=== PATIENT | male | born 1975 | race Caucasian/White ===

== ENCOUNTER 2016-07-19 13:38 | Emergency (ER) | payer MEDICAID ==
[2016-07-19 13:51] VITALS: BP 127/91
[2016-07-19] MEDS ORDERED: Sodium Chloride 0.9% 1,000 ML IV ONE (14:12)
[2016-07-19] MEDS ORDERED: Morphine Sulfate 4 mg/mL 1mL Syr IVP ONE (14:13)
--- NOTE | 2016-07-19 14:19 | ED Physician Chart ---
Chief Complaint/HPI - Patient Information Date Seen:: 07/19/16 Time Seen:: 14:04 Chief Complaint:: HEADACHE X 1 WEEK, WORSE X 2 DAYS History of Present Illness:: This 40-year-old male presents with a history of chronic headaches that began when he was approximately 21 years old. He has the headaches anywhere from once a week to on a monthly basis in the past years. At home he manages the headaches with tramadol but he knows the tramadol does not work once the headaches are established. The last time he had an identical headache to the present one was 3 months ago. The headaches are accompanied by nausea with occasional episodes of emesis. He describes the pain as a 9/10 in severity and he characterizes the pain as a pressure. The patient headaches can occur on either side of his head but today he has headache in both temporal regions. He has experienced in the bilateral headaches in the past. Light and noises make the headaches worse. The patient has been evaluated with CT scans of the head in the past with no significant findings. His mother has a history of migraine headaches as well. No family history of IC bleedS. Allergies:: Allergies Allergy/AdvReac Type Severity Reaction Status Date / Time No Known Allergies Allergy Verified 07/19/16 13:47 Vitals:: Vital Signs - 8 hr 07/19/16 07/19/16 13:50 13:51 Temp 98.5 F HR 79 RR 17 BP 127/91 127/91 O2 Sat % 97 Review of Systems - Review of Systems General/Constitutional: No fever, No chills, No weight loss, No weakness Skin: No skin lesions, No rash Head: Headache, No light-headedness Eyes: No loss of vision, No diplopia ENT: No earache, No sore throat, No tinnitus Neck: Neck pain, No swelling, No stiffness, No mass noted Cardio Vascular: No chest pain, No palpitations, No edema Pulmonary: No SOB, No cough, No sputum GI: Nausea, Vomiting, No diarrhea, No hematemesis G/U: No dysuria, No frequency, No hematuria Musculoskeletal: Bone or joint pain, No back pain Endocrine: No polyuria, No polydipsia Psychiatric: No prior psych history, No anxiety, No suicidal ideation Hematopoietic: No bruising Allergic/Immuno: No urticaria Neurological: No syncope, No focal symptoms, No weakness, No paresthesia, Headache, No confusion, No vertigo Past Medical History - Past Medical History Past Medical History: No significant medical hx, Other (history of migraine headaches.) Social History: Smoker (1-2 cigarettes per day.), No Alcohol, No Drug Use Surgical History: Hernia Family Medical History - Family Member Mother History Unknown: Yes Ethnicity: Living Status: Hx Family Cancer: No Hx Family Coronary Artery Disease: No Hx Family Congestive Heart Failure: No Hx Family Hypertension: Yes Hx Family Stroke: No Hx Family Diabetes: Yes Hx Family Seizures: No Hx Family Dementia: No Hx Family AIDS: No Hx Family HIV: No Hx Family COPD: No Hx Family Hepatitis: No Hx Family Psychiatric Problems: No Hx Family Tuberculosis: No Physical Exam - Physical Examination General/Constitutional: Awake, Well-developed, well-nourished, Alert, GCS 15, Non-toxic appearing, Ambulatory Head: Atraumatic Eyes: Lids, conjuctiva normal, PERRL, EOMI Skin: Nl inspection, No rash, No skin lesions, No ecchymosis, Well hydrated ENMT: External ears, nose nl, Nasal exam nl, Lips, teeth, gums nl, Oropharynx nl , Tonsils nl Neck: Nontender, No JVD, No nuchal rigidity Other Neck comments:: Supple with AP flexion. No C-spine tenderness. Respiratory: Nl effort/Exclusion, Clear to Auscultation, No Wheeze/Rhonchi/Rales Cardio Vascular: No murmur, gallop, rubs, NL S1 S2 Other Cardio Vascular comments:: Good pulses in all 4 extremities. GI: No tenderness/rebounding/guarding, No organomegaly, Normal BS's, Nondistended, No mass/bruits, No McBurney tenderness Other GI comments:: Patient has a laparoscopy scar below the umbilicus. Bowel sounds are normal. The abdomen is soft and nontender to palpation. No rebound or guarding. : No CVA tenderness Extremities: No tenderness or effusion, Full ROM, normal strength in all extremities, No edema Neuro/Psych: Alert/oriented, DTR's symmetric, Normal sensory exam, Normal motor strength, Judgement/insight normal, Mood normal, Normal gait, No focal deficits Other Neuro/Psych comments:: Finger-nose testing and heel-martinez testing are normal. The patient's gait is normal. Negative Romberg test. Labs/Radiology/EKG Results - Lab Results Results: No diagnostic laboratory studies or radiographic studies were indicated. Assessment - Assessment General Assessment: CASE SUMMARY: This 21-year-old male with a history of chronic migraine headaches presents with a typical headache that started seven days ago. His neurologic examination was nonfocal. Patient was treated with IV Zofran and morphine for control of his nausea, vomiting and headache. HE madrigal a good response and was discharged home. He was advised to follow up with his primary care physician within the next week or two. He was further advised to return to the emergency department for any onset of new neurologic symptoms. MDM DDX for ACUTE HEADACHE: NOT SAH Based on the patient's history and examination. NOT Meningitis based on the patient's history and examination. NOT Acute head injury based on the patient's history and physical examination. NOT Vertebral artery dissection based on the patient's history and physical examination. ED Septic Shock - . Is Septic Shock (SBP<90, OR Lactate>4 mmol\L) present?: No - <6hrs of presentation: Vital Signs: Vital Signs - 8 hr 07/19/16 07/19/16 13:50 13:51 Temp 98.5 F HR 79 RR 17 BP 127/91 127/91 O2 Sat % 97 Reassessment (Disposition) - Reassessment Reassessment Condition:: Improved - Diagnosis Diagnosis:: MIGRAINE HEADACHE - Aftercare/Follow up Instructions Aftercare/Follow-Up Instructions:: Refer to Discharge Instructions, Counseled pt & family regarding lab results/diagnosis & need follow up - Patient Disposition Discharge/Transfer:: Home ED Discharge Plan - Patient Disposition Admit/Discharge/Transfer: PT DISCHARGED HOME Condition at Disposition: Stable Instructions: Migraine Headache, [id number] Additional Instructions: Follow up with PMD this week. Accepting Physician: Primitivo Dee [Other]
[2016-07-19] MEDS ORDERED: Morphine Sulfate 4 mg/mL 1mL Syr ONE (14:20)
== END 2016-07-19 15:30 | disposition home or self-care (01) ==
LOC: ER 13:38
DX: G43.909 Migraine, unspecified, not intractable, without status migrainosus (principal); F17.210 Nicotine dependence, cigarettes, uncomplicated
CPT/HCPCS: 99284; 96374; 96375; J2405; J7030; Z7502

== ENCOUNTER 2016-10-12 17:14 | Emergency (ER) | payer MEDICAID ==
--- NOTE | 2016-10-12 17:35 | ED Physician Chart ---
Chief Complaint/HPI - Patient Information Date Seen:: 10/12/16 Time Seen:: 17:25 Chief Complaint:: L knee pain for 4 days. History of Present Illness:: Pt is Swedish speaking. Interpretation is provided by his son Pierre per pt's request. Pt denies any injury or trauma prior to onset of his L knee pain. Pt has not taken any analgesic over past few days. Pt remains ambulatory, though L knee pain worsens with prolonged wt bearing activities. No fever. No weakness or numbness. Allergies:: Allergies Allergy/AdvReac Type Severity Reaction Status Date / Time No Known Allergies Allergy Verified 10/12/16 17:21 Vitals:: see Nurse Note. Historian:: Patient Family MD/PCP:: Nick Kingsley LMP:: N/A Review:: Nurse's Note Reviewed Review of Systems - Review of Systems General/Constitutional: No fever, No chills, No weight loss, No weakness, No diaphoresis, No edema, No loss of appetite Skin: No skin lesions, No rash, No bruising Head: No headache, No light-headedness Eyes: No loss of vision, No pain, No diplopia ENT: No earache, No nasal drainage, No sore throat, No tinnitus Neck: No neck pain, No swelling, No thyromegaly, No stiffness, No mass noted Cardio Vascular: No chest pain, No palpitations, No PND, No orthopnea, No edema Pulmonary: No SOB, No cough, No sputum, No wheezing GI: No nausea, No vomiting, No diarrhea, No pain G/U: No dysuria, No frequency, No hematuria Musculoskeletal: No bone or joint pain (L knee pain, see HPI.), No back pain, No muscle pain Endocrine: No polyuria, No polydipsia Psychiatric: No prior psych history Hematopoietic: No bruising, No lymphadenopathy Allergic/Immuno: No urticaria, No angioedema Neurological: No syncope, No focal symptoms, No weakness, No paresthesia, No headache, No confusion Past Medical History - Past Medical History Past Medical History: No significant medical hx Family History: Diabetes Melitus (mother) Social History: Non Smoker, No Alcohol, No Drug Use, Other (lives with his and children.) Employment:: unemployed. Surgical History: Hernia (L inguinal hernia repair '09) Psychiatricy History: None Medication: Reviewed Family Medical History - Family Member Mother History Unknown: Yes Ethnicity: Living Status: Hx Family Cancer: No Hx Family Coronary Artery Disease: No Hx Family Congestive Heart Failure: No Hx Family Hypertension: Yes Hx Family Stroke: No Hx Family Diabetes: Yes Hx Family Seizures: No Hx Family Dementia: No Hx Family AIDS: No Hx Family HIV: No Hx Family COPD: No Hx Family Hepatitis: No Hx Family Psychiatric Problems: No Hx Family Tuberculosis: No Physical Exam - Physical Examination General/Constitutional: Awake, Well-developed, well-nourished, Alert, No distress, GCS 15, Non-toxic appearing, Ambulatory Other Gen/Cons comments:: Breathes comfortably, speaks clearly, and ambulates without definite difficulty. Head: Atraumatic Eyes: Lids, conjuctiva normal, PERRL, EOMI Skin: Nl inspection, No rash, No skin lesions, No ecchymosis, Well hydrated, No lymphadenopathy ENMT: External ears, nose nl, Nasal exam nl, Lips, teeth, gums nl, Oropharynx nl Neck: Nontender, Full ROM w/o pain, No nuchal rigidity, No mass, No stridor Respiratory: Nl effort/Exclusion, Clear to Auscultation, No Wheeze/Rhonchi/Rales Cardio Vascular: RRR, No murmur, gallop, rubs GI: No tenderness/rebounding/guarding, No organomegaly, Normal BS's, Nondistended, No mass/bruits Other GI comments:: Abdomen is obese but soft. : No CVA tenderness Other Extremities comments:: LLE: L knee: tenderness to palpation at anterior superior and lateral aspects. No gross deformity, erythema, crepitus, swelling, or unusual warmth. Good ROM. Negative Drawer's sign, stable MCL and LCL. No detectable motor/sensory/ vascular deficit. Good distal pulse. Neuro/Psych: Alert/oriented (oriented x 3), No focal deficits ED Septic Shock - . Is Septic Shock (SBP<90, OR Lactate>4 mmol\L) present?: No Reassessment (Disposition) - Reassessment Reassessment:: 182 Pt feels much better. L knee X-ray was offered earlier but he declined. Pt states that he had prolonged walking prior to onset of his L knee pain. Pt requests to go home now and does not want further observation/management in hospital. Aftercare instructions have been given. Interpretation is provided by his son Pierre. 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 Stable and improved. - Aftercare/Follow up Instructions Aftercare/Follow-Up Instructions:: Refer to Discharge Instructions Notes:: Avoid excessive wt bearing activities or heavy lifting until further physician direction. May take Tylenol 500 mg tab one tab po q6h prn pain. F/U with PCP at [facility] in 2-3 days for recheck. Return to ER immediately if condition worsens or if any further questions/problems. Medication Prescribed:: None - Patient Disposition Discharge/Transfer:: Home Time:: 18:30 Condition at Disposition:: Stable, Improved
== END 2016-10-12 18:24 | disposition home or self-care (01) ==
LOC: ER 17:14
DX: M17.12 Unilateral primary osteoarthritis, left knee (principal)
CPT/HCPCS: 99283; 96372; J1885; 96374; Z7502

== ENCOUNTER 2017-12-05 03:23 | Emergency (ER) | payer MEDICAID ==
--- NOTE | 2017-12-05 04:46 | ED Physician Chart ---
ED Chief Complaint/HPI - Patient Information Date Seen:: 12/05/17 Time Seen:: 03:45 Chief Complaint:: coffee ground emesis Allergies:: Allergies Allergy/AdvReac Type Severity Reaction Status Date / Time No Known Allergies Allergy Verified 10/12/16 17:21 Vitals:: Vital Signs - 8 hr 12/05/17 03:38 Temp 97.5 F HR 73 RR 16 BP 142/79 O2 Sat % 97 ED Past Medical History - Past Medical History Obtainable: Yes Past Medical History: Other (migraine headache) Family Medical History - Family Member Mother History Unknown: Yes Ethnicity: Living Status: Hx Family Cancer: No Hx Family Coronary Artery Disease: No Hx Family Congestive Heart Failure: No Hx Family Hypertension: No Hx Family Stroke: No Hx Family Diabetes: No Hx Family Seizures: No Hx Family Dementia: No Hx Family AIDS: No Hx Family HIV: No Hx Family COPD: No Hx Family Hepatitis: No Hx Family Psychiatric Problems: No Hx Family Tuberculosis: No ED Physical Exam - Physical Examination General/Constitutional: Awake, Well-developed, well-nourished, Alert, No distress, GCS 15, Non-toxic appearing, Ambulatory Head: Atraumatic Eyes: Lids, conjuctiva normal, PERRL, EOMI Skin: Nl inspection, No rash, No skin lesions, No ecchymosis, Well hydrated, No lymphadenopathy ENMT: External ears, nose nl, Nasal exam nl, Lips, teeth, gums nl Neck: Nontender, Full ROM w/o pain, No JVD, No nuchal rigidity, No bruit, No mass, No stridor Respiratory: Nl effort/Exclusion, Clear to Auscultation, No Wheeze/Rhonchi/Rales Cardio Vascular: RRR, No murmur, gallop, rubs, NL S1 S2 : No CVA tenderness Extremities: No tenderness or effusion, Full ROM, normal strength in all extremities, No edema, Normal digits & nails Neuro/Psych: Alert/oriented, DTR's symmetric, Normal sensory exam, Normal motor strength, Judgement/insight normal, Mood normal, Normal gait, No focal deficits Misc: Normal back, No paraspinal tenderness ED Assessment - Assessment Assessment/Comments:: patient feels 100% better after treatment. He is sleeping comfortably. Repeat BP was 119/73 after his headache went away. ED Septic Shock - . Is Septic Shock (SBP<90, OR Lactate>4 mmol\L) present?: No - <6hrs of presentation: Vital Signs: Vital Signs - 8 hr 12/05/17 03:38 Temp 97.5 F HR 73 RR 16 BP 142/79 O2 Sat % 97 ED Reassessment (Disposition) - Reassessment Reassessment Condition:: Improved - Diagnosis Diagnosis:: Migraine headache - Patient Disposition Discharge/Transfer:: Home
== END 2017-12-05 04:45 | disposition home or self-care (01) ==
LOC: ER 03:23
DX: G43.909 Migraine, unspecified, not intractable, without status migrainosus (principal); K92.0 Hematemesis
CPT/HCPCS: 99284; 96374; 96375; J1885; J1200; Z7502

== ENCOUNTER 2018-08-21 05:52 | Emergency (ER) | payer MEDICAID ==
--- NOTE | 2018-08-21 06:45 | ED Physician Chart ---
ED Chief Complaint/HPI - Patient Information Date Seen:: 08/21/18 Time Seen:: 06:42 Chief Complaint:: lt sided headache for one wk History of Present Illness:: 42 yr old male with lt sided headache for one wk no dizziness no htn or dm no nv no numbness or weakness Allergies:: Allergies Allergy/AdvReac Type Severity Reaction Status Date / Time No Known Allergies Allergy Verified 10/12/16 17:21 Vitals:: Vital Signs - 8 hr 08/21/18 08/21/18 06:05 06:30 Temp 97.8 F 97.8 F HR 63 61 RR 19 15 BP 124/82 126/87 O2 Sat % 96 96 ED Review of Systems - Review of Systems General/Constitutional: No fever, No chills, No weight loss, No weakness, No diaphoresis, No edema, No loss of appetite Skin: No skin lesions, No rash, No bruising Head: Headache Eyes: No loss of vision, No pain, No diplopia ENT: No earache, No nasal drainage, No sore throat, No tinnitus Neck: No neck pain, No swelling, No thyromegaly, No stiffness, No mass noted Cardio Vascular: No chest pain, No palpitations, No PND, No orthopnea, No edema Pulmonary: No SOB, No cough, No sputum, No wheezing GI: No nausea, No vomiting, No diarrhea, No pain, No melena, No hematochezia, No constipation, No hematemesis G/U: No dysuria, No frequency, No hematuria Musculoskeletal: No bone or joint pain, No back pain, No muscle pain Endocrine: No polyuria, No polydipsia Psychiatric: No prior psych history, No depression, No anxiety, No suicidal ideation Hematopoietic: No bruising, No lymphadenopathy Allergic/Immuno: No urticaria, No angioedema Neurological: No syncope, No focal symptoms, No weakness, No paresthesia, No headache, No seizure, No dizziness, No confusion, No vertigo ED Past Medical History - Past Medical History Past Medical History: No significant medical hx Family Medical History - Family Member Mother History Unknown: Yes Ethnicity: Living Status: Hx Family Cancer: No Hx Family Coronary Artery Disease: No Hx Family Congestive Heart Failure: No Hx Family Hypertension: No Hx Family Stroke: No Hx Family Diabetes: No Hx Family Seizures: No Hx Family Dementia: No Hx Family AIDS: No Hx Family HIV: No Hx Family COPD: No Hx Family Hepatitis: No Hx Family Psychiatric Problems: No Hx Family Tuberculosis: No ED Physical Exam - Physical Examination General/Constitutional: Awake, Well-developed, well-nourished, Alert, No distress, GCS 15, Non-toxic appearing, Ambulatory Head: Atraumatic Eyes: Lids, conjuctiva normal, PERRL, EOMI Skin: Nl inspection, No rash, No skin lesions, No ecchymosis, Well hydrated, No lymphadenopathy ENMT: External ears, nose nl, Nasal exam nl, Lips, teeth, gums nl Neck: Nontender, Full ROM w/o pain, No JVD, No nuchal rigidity, No bruit, No mass, No stridor Respiratory: Nl effort/Exclusion, Clear to Auscultation, No Wheeze/Rhonchi/Rales Cardio Vascular: RRR, No murmur, gallop, rubs, NL S1 S2 GI: No tenderness/rebounding/guarding, No organomegaly, No hernia, Normal BS's, Nondistended, No mass/bruits, No McBurney tenderness : No CVA tenderness Extremities: No tenderness or effusion, Full ROM, normal strength in all extremities, No edema, Normal digits & nails Neuro/Psych: Alert/oriented, DTR's symmetric, Normal sensory exam, Normal motor strength, Judgement/insight normal, Mood normal, Normal gait, No focal deficits Misc: Normal back, No paraspinal tenderness ED Assessment - Assessment General Assessment: headache ED Septic Shock - . Is Septic Shock (SBP<90, OR Lactate>4 mmol\L) present?: No - <6hrs of presentation: Vital Signs: Vital Signs - 8 hr 08/21/18 08/21/18 06:05 06:30 Temp 97.8 F 97.8 F HR 63 61 RR 19 15 BP 124/82 126/87 O2 Sat % 96 96 ED Reassessment (Disposition) - Reassessment Reassessment:: headaches - Diagnosis Diagnosis:: as above - Patient Disposition Discharge/Transfer:: Home Condition at Disposition:: Stable
[2018-08-21 07:07] LABS: URINE SOURCE CLEAN C
[2018-08-21 07:16] LABS: URINE BILIRUBIN NEGATIVE (NEGATIVE); URINE BLOOD NEGATIVE (NEGATIVE); URINE GLUCOSE (UA) NEGATIVE (NEGATIVE); URINE KETONE NEGATIVE (NEGATIVE); URINE LEUKOCYTE ESTERASE NEGATIVE (NEGATIVE); URINE NITRATE NEGATIVE (NEGATIVE); URINE PH 5.5 (4.6 - 8.0); URINE PROTEIN NEGATIVE (NEGATIVE); URINE UROBILINOGEN 0.2 E.U./dL (0.2 - 1.0)
[2018-08-21 07:22] LABS: URINE CLARITY CLEAR (CLEAR); URINE COLOR YELLOW; URINE MICROSCOPIC INDICATED? NO
[2018-08-21 07:28] LABS: AMPHETAMINE URINE NEGATIVE (NEGATIVE); BARBITURATES URINE NEGATIVE (NEGATIVE); BENZODIAZEPINES QUAL URINE NEGATIVE (NEGATIVE); CANNABINOID THC NEGATIVE (NEGATIVE); COCAINE METABOLITE QUAL URINE NEGATIVE (NEGATIVE); METHADONE URINE NEGATIVE (NEGATIVE); METHAMPHETAMINES QUAL URINE NEGATIVE (NEGATIVE); OPIATES (MORPHINE) QUAL. URINE NEGATIVE (NEGATIVE); PHENCYCLIDINE (PCP) URINE NEGATIVE (NEGATIVE); TRICYCLICS (TCA) QUAL. URINE NEGATIVE (NEGATIVE)
[2018-08-21 07:29] LABS: % BASOPHILS 0.2 % (0.0-2.0); % EOSINOPHILS 1.1 % (0.0-5.0); % LYMPHOCYTES 9.3 % (20.0-50.0); % MONOCYTES 5.6 % (2.0-10.0); % NEUTROPHILS 83.8 % (40.0-80.0); EOSINOPHILE ABSOLUTE 0.1 Th/cmm (0.1-0.4); HEMATOCRIT 44.6 % (41.0-60); LYMPHOCYTE ABSOLUTE 0.9 Th/cmm (1.5-3.0); MEAN CELL VOLUME 88.9 fl (80-99); MEAN CORPUSCULAR HEMOGLOBIN 29.8 pg (26.0-30.0); MEAN CORPUSCULAR HGB CONC 33.5 pg (28.0-36.0); MEAN PLATELET VOLUME 6.8 fl; MONOCYTE ABSOLUTE 0.5 Th/cmm (0.3-1.0); NEUTROPHILE ABSOLUTE 7.7 Th/cmm (1.8-8.0); PLATELET COUNT 254 Th/cmm (150-400); RED BLOOD COUNT 5.02 Mil/cmm (4.30-5.70); RED CELL DISTRIBUTION WIDTH 12.8 % (11.5-20.0); WHITE BLOOD COUNT 9.2 Th/cmm (4.8-10.8)
[2018-08-21 07:47] LABS: ALB/GLOB RATIO 1.6 (1.0-1.8); ALBUMIN 4.5 gm/dL (4.2-5.5); ALKALINE PHOSPHATASE 69 U/L (34-104); ANION GAP 12.2 (7.0-16.0); BILIRUBIN,TOTAL 0.8 mg/dL (0.3-1.0); BUN - UREA NITROGEN 15 mg/dL (7-25); CALCIUM SERUM 9.5 mg/dL (8.6-10.3); CARBON DIOXIDE 25.4 mEq/L (21.0-31.0); CHLORIDE 107 mEq/L (98-107); GFR AFRICAN-AMERICAN > 60.0 ml/min (>90); GFR NON AFRICAN-AMERICAN > 60.0 ml/min; GLUCOSE 108 mg/dL (70-105); POTASSIUM SERUM 3.6 mEq/L (3.5-5.1); SGOT 26 U/L (13-39); SGPT/ALT 40 U/L (7-52); SODIUM SERUM 141 mEq/L (136-145); TOTAL PROTEIN,SERUM 7.3 gm/dL (6.0-8.3)
--- NOTE | 2018-08-21 08:04 | Diagnostic Imaging Report ---
Head CT without intravenous contrast Indication: Headache Comparison: Head CT 10/18/2014 Technique: Axial images were obtained from the vertex to the skull base without IV contrast. Coronal reconstructions were made. Total DLP: 725, [id number] FINDINGS: Images of the brain obtained without contrast demonstrate no evidence of an acute hemorrhage. The ventricles and basal cisterns are patent. No mass effect or midline shift. No evidence of a skull fracture or focal soft tissue swelling. The visualized paranasal sinuses demonstrate mild mucosal thickening. IMPRESSION: No acute intracranial abnormality.
== END 2018-08-21 08:31 | disposition home or self-care (01) ==
LOC: ER 05:52
DX: R51 Headache (principal)
CPT/HCPCS: 99284; 96372; 70450; 36415; 80307; 85025; 81003; 80053; 87040 ×2; J1885